=== PATIENT | male | born 1945 | race Caucasian/White ===

== ENCOUNTER 2021-06-15 22:35 | Emergency (ER) | payer MEDICARE, SELFPAY ==
--- NOTE | ~2021-06-15 | CT_ITS ---
EXAMINATION: CT HEAD WITHOUT CONTRAST CLINICAL INFORMATION: Altered mental status. COMPARISON: None TECHNIQUE: Contiguous axial imaging was performed from the skull base to vertex without intravenous administration of contrast. This CT examination was performed using dose optimization techniques as appropriate, variously including the following: *Automated exposure control *Adjustment of mA and/or kV according to patient size (this includes techniques or standardized protocols for targeted exams where dose is matched to indication/reason for exam; i.e. extremities or head) *Use of iterative reconstruction technique DLP: 710 mGy-cm FINDINGS: There is no evidence of acute intracranial hemorrhage or edematous territorial infarction. Scattered hypoattenuation in the periventricular and deep white matter are consistent with moderate microangiopathy. Chronic bilateral lacunar infarcts. Polanco-white matter differentiation is preserved. Proportional prominence of the ventricles and sulcal spaces. No evidence for obstructive hydrocephalus. No abnormal mass effect or midline shift. No extra-axial fluid collections. Chronic appearing nasal bone fractures. There is indeterminate focal discontinuity within the anterior wall of the frontal sinuses. No acute soft tissue abnormalities. Paranasal sinuses and mastoids are clear. CT/CT head/brain wo con IMPRESSION: 1. No evidence of acute intracranial hemorrhage or edematous territorial infarction. 2. Chronic appearing fractures of the nasal bones and rosenbaum of the frontal sinuses. Correlate for tenderness/pain at this site. 3. Chronic microangiopathy, generalized cerebral volume loss and chronic bilateral lacunar infarcts.
[2021-06-15 22:47] VITALS: BP 168/86; PULSE 98; O2SAT 97
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
[2021-06-15 23:00] VITALS: BP 169/77; PULSE 73; RESP 12; TEMP 37.1; O2SAT 96; BMI 28.7
--- NOTE | 2021-06-15 23:05 | ECG_ITS ---
Test Reason : ALTERED MENTAL Blood Pressure : / mmHG Vent. Rate : 073 BPM Atrial Rate : 000 BPM P-R Int : 000 ms QRS Dur : 104 ms QT Int : 394 ms P-R-T Axes : 000 -35 002 degrees QTc Int : 434 ms Artifact in tracing Based on some P waves, probably sinus Left axis deviation Septal infarct , age undetermined Abnormal ECG No previous ECGs available Referred By: Marvel Gamboa Electronically Signed By:SAHARA VALLES
[2021-06-15 23:31] LABS: MANUAL DIFF FLAG NO
[2021-06-15 23:32] LABS: Basophils Absolute Auto 0.1 X10*3/uL (0.0-0.2); Basophils Percent Auto 0.6 % (0-2); Eosinophils Percent Auto 0.3 % (0-4); Hematocrit 43.1 % (42.0-52.0); Hemoglobin 14.7 g/dl (14.0-18.0); Imm Gran Abs Auto 0.02 X10*3/uL (0.00-0.03); Imm Gran Pct Auto 0.2 % (0.0-0.4); Lymphocytes Absolute Auto 2.5 X10*3/uL (1.2-4.9); Lymphocytes Percent Auto 24.2 % (20-40); Mean Corpuscular HGB Conc 34.1 g/dl (31.0-36.0); Mean Corpuscular Hemoglobin 31.8 pg (27.0-33.0); Mean Corpuscular Volume 93.3 fL (80.0-98.0); Mean Platelet Volume 9.1 fL (9.4-12.4); Monocytes Absolute Auto 0.9 X10*3/uL (0.1-1.2); Monocytes Percent Auto 8.3 % (2-11); Neutrophils Absolute Auto 6.9 x10*3/uL (2.0-8.3); Neutrophils Percent Auto 66.4 % (45-73); Platelet Count 300 X10*3/uL (160-400); Red Blood Count 4.62 X10*6/uL (4.60-5.80); Red Cell Distribution Width 12.1 % (11.0-16.0); White Blood Count 10.4 X10*3/uL (4.8-10.8)
[2021-06-15 23:51] LABS: Troponin-I High Sensitivity 14.2 ng/L (<3.5-35.0)
[2021-06-16 00:02] LABS: COVID-19 Test Negative (Negative)
[2021-06-16 00:26] VITALS: BP 132/72; PULSE 72; RESP 13; O2SAT 98
[2021-06-16 00:52] LABS: Appearance Urine CLEAR; Color Urine YELLOW; Glucose Urine UA >=1000 MG/DL (NEG); Leukocyte Esterase Urine NEG (NEG); Nitrite Urine NEG (NEG); Specific Gravity - Urine <= 1.005 (1.005-1.025); UACC Culture Trigger NO; Urine Blood 3+ (NEG); Urine Ketones NEG (NEG); Urine Protein NEG (NEG-TRACE)
[2021-06-16 00:59] LABS: Squamous Epithelial Cell Urine TRACE /LPF; WBC Urine 0-2 /HPF (0-4)
[2021-06-16 01:02] LABS: Alanine Aminotransferase 19 U/L (0-40); Alkaline Phosphatase 55 U/L (39-117); Anion Gap 12 (12-20); Aspartate Amino Transferase 12 U/L (5-37); Bilirubin Total 0.6 mg/dL (0.0-1.0); Blood Urea Nitrogen 21 mg/dL (9-16); Calcium 9.2 mg/dL (8.4-10.2); Carbon Dioxide 25 mmol/L (22-29); Chloride 106 mmol/L (96-108); Creatinine Clr Calc Pharmacy 61.4; Estimated Glomerular Filt Rate > 60; Glucose Random 411 mg/dL (60-115); Magnesium 2.3 mg/dL (1.6-2.6); Potassium 4.2 mmol/L (3.3-5.1); Sodium 139 mmol/L (135-145); Total Protein 6.6 g/dL (6.5-8.0)
[2021-06-16] MEDS: 0.9 % Sodium Chloride 1,000 ML 999 ML IVCONT (01:08)
[2021-06-16] MEDS: Insulin Lispro 100 UNIT/ML 3 ML VIAL 12 UNIT SUBCUT (01:11)
[2021-06-16 02:05] LABS: Glucose, Whole Blood 249 mg/dL (60-115)
== END 2021-06-16 02:51 | disposition home or self-care (01) ==
PROVIDERS: Emergency Provider Internal Medicine
DX: R41.82 Altered mental status, unspecified (principal); E11.65 Type 2 diabetes mellitus with hyperglycemia; Z20.822 Contact with and (suspected) exposure to COVID-19; Z79.899 Other long term (current) drug therapy
CPT/HCPCS: 36415; 70450; 80053; 81001; 82947; 83735; 84484; 85025; 87635; 93005; 96360; 99284